=== PATIENT | male | born 1945 | race Caucasian/White ===

== ENCOUNTER 2025-03-17 07:54 | Outpatient (AMB) | payer MEDICARE, SELFPAY ==
--- NOTE | 2025-03-17 07:57 | A.OFFVIS_ITS ---
Vital Signs 03/17/25 08:10 Height 5 ft 5 in Weight 170 lb BMI 28.3 BP 134/70 Blood Pressure Location Rt brachial Position Sitting Intake Visit Reasons: ENP - Parkinson's Intake Note: patient referred by [facility] for parkinsons Allergies No Known Allergies Allergy (Verified 03/17/25 08:02) Medication List - Last Reconciled 03/17/25 by Frida Werner MD amlodipine-atorvastatin 5-20 mg 1 tab PO DAILY atorvastatin (Lipitor) 40 mg PO DAILY bupropion HCl 75 mg PO DAILY carbidopa-levodopa 25-100 mg (Sinemet) 1 tab PO TID memantine (Namenda) 10 mg PO BID metformin 1,000 mg PO BID pantoprazole 40 mg PO DAILY primidone 50 mg PO BEDTIME ropinirole 0.5 mg PO TID sertraline (Zoloft) 50 mg PO DAILY HPI Comments Details: 80y/o Right handed male comes for further management of Parkinsons and essential Tremors. His previous neurologist Dr. Pyle who retired. His noticed tremors in right hand about 5 years ago which progressively worsened. SHe also noticed that his movements were slower. So 3 years ago hew as seen by Dr. Pyle who diagnosed with Parkinsons disease with a component of essential tremors. He is on Primidone and carbidopa/levodopa . In the past 5 months his noticed more slowing ,needs help with many activities like standing up form sitting positions, dressing etc. His cognition is worse in the past 6 mths.He has trouble handling bills, trouble recalling , word finding etc.He stopped driving 3 mths ago - concerned about slow reaction time. SLeep- used to have sleep talking . he is very fatigued Mood- depression and anxiety Speech- softer, has drooling. He has some trouble swallowing Hand writing- smaller Using utensils- slower Dressing- slower Showers - needs help Falls- frequent -more when he is anxious. Gait- uses a cane , very slow, small steps , freezing episodes and turning is hard Bowel movements- OK Fluid intake - needs reminder Dizziness- none His brother and sister had parkinsons. He spent 1 year on [place] with possible exposure to agent orange. They live in a camp in [facility] in [place]. [facility] Medical History (Updated 03/17/25 @ 08:37 by Frida Werner MD) Parkinsons disease Parkinson disease with dyskinesia Mixed hyperlipidemia Essential tremor Cataract HTN (hypertension) Gout Diabetes Depression Asthma Arthritis Surgical History Hx of colonoscopy Hx of appendectomy Family History Mother Lung cancer Father Diabetes Social History Household Members: Spouse Alcohol intake: never Patient Tobacco Use Status: Never used Tobacco Physical Exam Vital Signs: Last Vital Signs BP 134/70 03/17/25 08:10 BMI result Body Mass Index 28.3 Const General: cooperative, healthy appearing, comfortable, no acute distress and anxious Nutritional Appearance: average body habitus Orientation/consciousness: patient oriented x3 Eyes Pupils: Equal, round and reactive pupils present Neuro Other: Right UE rest tremors - moderate amplitude Cog wheel rigidity - 2 + FFM and foot taps - Decreased cheli R>L Foot taps - decreased cheli R>L Moderate bradykinesia Severely decreased facial expression and blink Hypophonia Gait- small steps , stooped , freezing , difficulty turning General: patient oriented x3, moves all extremities and no focal motor deficits Cranial nerves: Yes Facial sensation intact/muscles of mastication intact, Yes Equal, round and reactive pupils present, Yes Bilaterally intact EOM present, Yes Nystagmus not present, Yes Normal facial strength present and Yes Midline to ngue present Cognition (Neuro): normal cognition Motor exam (neuro): 5/5 motor strength present throughout Deep tendon reflexes (DTR's): Right triceps reflex intensity grade: 1+, Left triceps reflex intensity grade: 1+, Rt Biceps (C5, C6): 1+, Left biceps reflex intensity grade: 1+, Right brachioradialis reflex intensity grade: 1+, Left brachioradialis reflex intensity grade: 1+, Right patellar reflex intensity grade: 1+ and Left patellar reflex intensity grade: 1+ Coordination: [id number] test normal Psych Affect: Anxious affect present Assessment & Plan Assessment & Plan (1) Parkinsons disease: Code(s): G20.A1 - Parkinson's disease without dyskinesia, without mention of fluctuations Category: Medical Qualifiers: Dyskinesia presence: without dyskinesia Fluctuating manifestations: without fluctuating manifestations Qualified Code(s): G20.A1 - Parkinson's disease without dyskinesia, without mention of fluctuations Plan Poorly controlled symptoms I will trial a higher dose of carbidopa.levodopa 25/100 tid - increase to 1tab qid Ropinirole 0.5mg tid Primidone 50mg qhs PT for parkinsons Orders: Orders PT Evaluation and Treatment Today G20.A1 - Parkinson's disease without dyskinesia, without mention of fluctuations Medications: New carbidopa-levodopa 25-100 mg (Sinemet) 1 tab PO QID 120 tabs 6RF Coding Level of Care Code New Pt Level 4 (26979) Complex EM visit Add On G2211 Diagnoses Parkinson's disease without dyskinesia or fluctuating manifestations G20.A1 Dyskinesia presence: without dyskinesia Fluctuating manifestations: without fluctuating manifestations
--- OUTSIDE RECORDS SUMMARY | 2025-03-17 07:59 | XMS_ITS | Clinical Summary ---
Author Organization [facility] Address [address] [place] [address] Care Team Providers Care Assistant Account Executive Name Role Phone Aniket Montez MD Primary Care Provider Unavail able Allergies No known active allergies Medications Medication Sig Dispensed Refills Start Date End Date Status amLODIPine-benazepril (LOTREL 5-20) 5-20 MG per capsule TAKE 1 CAPSULE BY MOUTH EVERY DAY FOR 90 DAYS 0 12/08/2023 Active atorvastatin (LIPITOR) tablet 40 mg TAKE 1 TABLET BY MOUTH EVERY DAY AT BEDTIME FOR 90 DAYS 0 01/20/2024 Active buPROPion (WELLBUTRIN) 75 MG tablet TAKE 1 TABLET BY MOUTH EVERY DAY FOR 90 DAYS 0 11/25/2023 Active carbidopa-levodopa (SINEMET) 25-100 MG per tablet Take 1 tablet by mouth 3 (three) times a day. 0 01/15/2024 Active cyclobenzaprine (FLEXERIL) 10 MG tablet Take 1 tablet (10 mg total) by mouth every evening. 0 12/25/2023 Active metFORMIN (GLUCOPHAGE) tablet 1000 mg Take 1 tablet (1,000 mg total) by mouth 2 (two) times a day with meals. 0 12/07/2023 Active pantoprazole (PROTONIX) 40 MG tablet Take 1 tablet (40 mg total) by mouth daily. 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 Family History Medical History Relation Name Comments Cancer Brother 3 brothers with cancer- 2 lung,1 esophageal Cancer Mother lung Relation Name Status Comments Brother Mother Social History Tobacco Use Types Packs/Day Years Used Date Smoking Tobacco: Former Cigarettes Q uit: 1975 Smokeless Tobacco: Never Comments:Smoked [id number] Alcohol Use Standard Drinks/Week Comments Not Currently 0 (1 standard drink = 0.6 oz pur e alcohol) Sex and Gender Information Value Date Recorded Sex Assigned at Male 12/20/2023 9:47 AM EDT Gender Identity Not on file Sexual Orientation Not on file Job Start Date Occupation Industry Not on file Not on file Not on file Last Filed Vital Signs Vital Sign Reading Time Taken Comments Blood Pressure 138/76 01/31/2024 2:39 PM EDT Pulse 80 01/31/2024 2:39 PM EDT Temperature 36.7 C (98.1 F) 01/31/2024 2:39 PM EDT Respiratory Rate - - Oxygen Saturation 99% 01/31/2024 2:39 PM EDT Inhaled Oxygen Concentration - - Weight 78.7 kg (173 lb 6.4 oz) 01/31/2024 2:39 P M EDT Height - - Body Mass Index - - Plan of Treatment Health Maintenance Due Date Last Done Comments Hepatitis C Screening 1945 COVID-19 Vaccine (#1) 02[birth year]12/1952 Pneumococcal Vaccine (1 of 2 - PCV) 1953 Depression Screening 1959 Preventative Health Evaluation 1965 DTap / Tdap / Td (1 - Tdap) 1966 Shingrix-Zoster Vaccine (1 of 2) 1966 Fall Risk Assessment 02/12/2012 RSV Adult > 60+ Yrs or Pregn ant (1 - 1-dose 75+ series) 2022 Influenza Vaccine (Season Ended) 2025 Hepatitis B Vaccines Aged Out No long er eligible based on patient's age to complete this topic RSV Ped < 20 months Aged Out No longe r eligible based on patient's age to complete this topic Care Teams Assistant Account Executive Relationship Specialty Start Date End Date Aniket Montez MD PCP - General Internal Medicine 12/20/23
[2025-03-17 08:10] VITALS: BP 134/70; BMI 28.3
== END 2025-03-17 08:45 | disposition home or self-care (01) ==
PROVIDERS: PCP Internal Medicine; Visit Provider Psychiatry & Neurology Neurology
DX: G20.A1 Parkinson's disease without dyskinesia, without mention of fluctuations (principal)
CPT/HCPCS: 99204; G2211

== ENCOUNTER → 2025-03-17 07:54 | Outpatient (BNVA) | payer MEDICARE, SELFPAY | PROVIDERS: PCP Internal Medicine; Visit Provider Psychiatry & Neurology Neurology | DX: G20.A1 Parkinson's disease without dyskinesia, without mention of fluctuations (principal) | CPT/HCPCS: 99202 ==

== ENCOUNTER 2025-05-20 11:06 | Outpatient (AMB) | payer MEDICARE, SELFPAY ==
[2025-05-20 11:35] VITALS: BP 124/74; PULSE 79; O2SAT 97; BMI 27.5
--- NOTE | 2025-05-20 11:35 | MHC.OFFVIS ---
Vital Signs 05/20/25 11:35 Height 5 ft 5 in Weight 165 lb 6 oz BMI 27.5 BP 124/74 Blood Pressure Location Rt brachial Position Sitting Pulse 79 Pulse Source Pulse Oximeter Pulse Oximetry (%) 97 Oxygen Delivery Method Room Air Intake Visit Reasons: R/S 05/13/2025 Intake Note: Patient presents follow up Parkinson's Medication. OT notes in chart. Patient fell yesterday(was leaning forward and could not stop and kept going forward. Hard time to position body to get up) last 4-5 days not doing well. Patient at times is stuck(freeze) and can not move. Patient also stated patient has voiced hopeless. OT been going well. Got Flu shot sayurday Accompanied by: Spouse Allergies No Known Allergies Allergy (Verified 05/20/25 11:47) HPI Comments Details: 80y/o r. handed male comes for further management of Parkinsons and Essential Tremors. His previous neurologist was Dr. Pyle who retired.Ashley his helps with history today. CD/LD 8am, 12pm, 4pm and 8pm. Interval Med Hx: He had a fall yesterday when bending over and helping to clean the sharron litter box. He could not figure out how to position himself to get back up. He was able to roll over on his stomach and get on his knees then pull himself up. He becomes completely exhausted with falls. His noticed tremors in r. hand at rest about 5 years ago, now progressively worsened. 3 years ago, she noticed his movements were slower, and he was seeen and diagnosed with Prkonsons disease with a component of essential tremors, r.hand >l. hand. He sees OT 2x a week, has good strength, however unable to initiate the movements. He has hemicrania managed with Indomethacin. Memory has worsened in the last 6months as he has trouble with word finding, recalling, he asks her what time are we leaving 3x or more, repeats, needs redirection, loses focus easily and needs cue-ing. He has trouble managing finances, was sending an exorbitant amount of money to bill payer but corrected this mistake. Ashley keeps extra finances in the account in case of these mistakes. Moves much slower, no longer drives, as his reaction time is very slow. He is on Primidone and carbidopa/levodopa 4 times a day. In the past 5 months his noticed more slowing ,needs help with many activities like standing up form sitting positions, dressing etc. SLeep- used to sleep talk, now fatigued regardless of sleeping 7-8hours a night. Mood- depression and anxiety we will increase his zoloft to 75mg today per pt. request. Speech is softer, has drooling. Denies dysphagia to solids or liquids. Hand writing- smaller, trouble cutting up food. Using utensils- slower. Dressing- is slow and needs support. Showers - with support. Falls- frequent -more when he is anxious. Gait- uses a cane, very slow, small steps , freezing episodes and turning to the left is challenging, going up and down stairs is difficulty. Does not want to use a walker. Bowel movements- every 2 days. Nocturia denies. Fluid intake - needs reminders. Dizziness/ vertigo denies. Daily headaches takes Indomethacin. FH + brother and sister had parkinsons. He spent 1 year on [employer] with possible exposure to agent orange. Sleep is generally good bedtime is at 11pm and wakes up at 9am, has one bathroom break. Denies snoring, gasping for air, choking or morning headaches. He has a motorized bed to help him transition in and out of bed. He is chronically fatigued. [facility] Medical History Parkinsons disease Parkinson disease with dyskinesia Mixed hyperlipidemia Essential tremor Cataract HTN (hypertension) Gout Diabetes Depression Asthma Arthritis Surgical History Hx of colonoscopy Hx of appendectomy Family History Mother Lung cancer Father Diabetes Social History Household Members: Spouse Alcohol intake: never Patient Tobacco Use Status: Never used Tobacco Physical Exam Vital Signs: Last Vital Signs Pulse 79 05/20/25 11:35 BP 124/74 05/20/25 11:35 Pulse Ox 97 05/20/25 11:35 Oxygen Delivery Method Room Air 05/20/25 11:35 BMI result Body Mass Index 27.5 Const General: cooperative, healthy appearing, comfortable, no acute distress and anxious Nutritional Appearance: average body habitus Orientation/consciousness: patient oriented x3 Eyes Pupils: Equal, round and reactive pupils present Neuro Other: Right UE rest tremors - moderate amplitude Cog wheel rigidity - 2 + FFM and foot taps - Decreased cheli R>L Foot taps - decreased cheli R>L Moderate bradykinesia Severely decreased facial expression and blink Hypophonia Gait- small steps , stooped , freezing , difficulty turning General: patient oriented x3, moves all extremities and no focal motor deficits Cranial nerves: Yes Facial sensation intact/muscles of mastication intact, Yes Equal, round and reactive pupils present, Yes Bilaterally intact EOM present, Yes Nystagmus not present, Yes Normal facial strength present and Yes Midline tongue present Cognition (Neuro): normal cognition Motor exam (neuro): Abnormal motor strength present and Abnormal muscle tone present Deep tendon reflexes (DTR's): Right triceps reflex intensity grade: 1+, Left triceps reflex intensity grade: 1+, Rt Biceps (C5, C6): 1+, Left biceps reflex intensity grade: 1+, Right brachioradialis reflex intensity grade: 1+, Left brachioradialis reflex intensity grade: 1+, Right patellar reflex intensity grade: 1+ and Left patellar reflex intensity grade: 1+ Coordination: [id number] test normal Psych Appearance: well kempt Affect: Anxious affect present Thought process: Normal thought process present Thought content: Normal thought content present Assessment & Plan Assessment & Plan (1) Parkinsons disease: Code(s): G20.A1 - Parkinson's disease without dyskinesia, without mention of fluctuations Category: Medical Qualifiers: Dyskinesia presence: without dyskinesia Fluctuating manifestations: without fluctuating manifestations Qualified Code(s): G20.A1 - Parkinson's disease without dyskinesia, without mention of fluctuations (2) Anxiety: Code(s): F41.9 - Anxiety disorder, unspecified Category: Medical (3) Depression: Code(s): F32.A - Depression, unspecified Category: Medical Qualifiers: Depression Type: other depression Qualified Code(s): F32.89 - Other specified depressive episodes (4) Drooling: Code(s): K11.7 - Disturbances of salivary secretion Category: Medical Plan Poorly controlled symptoms I will trial a higher dose of carbidopa.levodopa 25/100 tid - increase to 1tab qid, 8am, 12pm, 4pm, 8pm. Pt. education provided re: taking this medication without protiens due to decreased absorption. May take with crackers, snack or fruit. Ropinirole 0.5mg tid Primidone 50mg qhs Headches / hemicrania continue indomethacin per pcp, may use a migraine cap. Anxiety and Depression will increase the sertraline to 75mg po daily, as patient did not want to defer this to the PCP. PT / OT for parkinsons. Orders: Orders OT Evaluation and Treatment 05/20/25 K11.7 - Disturbances of salivary secretion Medications: Changed From memantine (Namenda) 10 mg PO BID To memantine (Namenda) take one tablet in the am and one tablet in the evening daily for cognitive decline. 10 mg PO BID 180 tabs 0RF forgetfulness 3 months MDD 20mg Patient Instructions: Sleep Hygiene provided: set a scheduled bedtime and wake time to help regulate the circadian rhythm and balance the release of pituitary hormones. Sleep in a dark room, temperatures below 68 degrees, and no devices n bed. Limit caffeinated products 6 hours prior to bed, and limit fluids 2-4 hours prior to bed. Gentle night yoga, diffusing essential oils, and playing soft music can be relaxing. Coding Level of Care Code Est Pt Level 4 (69214) Diagnoses Parkinson's disease without dyskinesia or fluctuating manifestations G20.A1 Dyskinesia presence: without dyskinesia Fluctuating manifestations: without fluctuating manifestations Anxiety F41.9 Other depression F32.89 Depression Type: other depression Drooling K11.7
--- OUTSIDE RECORDS SUMMARY | 2025-05-20 11:59 | XMS_ITS | Encounter Summary ---
Author Organization [facility] Address [address] [place] [address] Care Team Providers Care Feed Adviser Name Role Phone Community, Pcp Primary Care Provider Aniket Hernandez MD Primary Care Provider Linda mo Encounter Details Date Type Department Care Team Description 01/22/2018 Transfer Records Medical Records [address] [place] [id number] Abstract, Provider Social History Tobacco Use Types Packs/Day Years Used Date Smoking Tobacco: Never Assessed Sex Assigned at Date Recorded Not on file documented as of this encounter Plan of Treatment Not on file documented as of this encounter Visit Diagnoses Not on filedocumented in this encounter Care Teams Feed Adviser Relationship Specialty Start Date End Date [facility], Pcp PCP - General Internal Medicine 01/16/18 01/25/18 Aniket Montez MD PCP - General Internal Medicine 01/26/18 documented as of this encounter
--- OUTSIDE RECORDS SUMMARY | 2025-05-20 11:59 | XMS_ITS | Clinical Summary ---
Author Organization [facility] Address [address] [place] [address] Phone Care Team Providers Care Assistant Surveyor Name Role Phone Aniket Montez MD Primary Care Provider Allergies No known active allergies Medications amLODIPine-danyelle zepril (LOTREL) 5-20 mg per capsule TAKE 1 CAPSULE BY MOUTH EVERY DAY FOR 90 DAYS 12/08/2023 Active atorvastatin (LIPITOR) 40 mg tablet TAKE 1 TABLET BY MOUTH EVERY DAY AT BEDTIME FOR 90 DAYS 01/20/2024 Active buPROPion (WELLBUTRIN) 75 mg tablet TAKE 1 TABLET BY MOUTH EVERY DAY FOR 90 DAYS 11/25/2023 Active carbidopa-levod opa (SINEMET) 25-100 mg per tablet Take 1 tablet by mouth 3 (three) times a day. 01/15/2024 Active metFORMIN (GLUCOPHAGE) 1,000 mg tablet Take 1 tablet (1,000 mg total) by mouth 2 (two) times a day with meals. 12/07/2023 Active pantoprazole (PROTONIX) 40 mg EC tablet Take 1 tablet (40 mg total) by mouth daily. 10/26/2023 Active sertraline (ZOLOFT) 50 mg tablet TAKE 1 TABLET BY MOUTH EVERY DAY FOR 90 DAYS 10/29/2023 Active rOPINIRole (REQUIP) 0.5 mg tablet TAKE 1 TABLET (0.5 MG) BY ORAL ROUTE 3 TIMES PER DAY FOR 90 DAYS 12/07/2023 Active memantine (NAMENDA) 10 mg tablet Take 1 tablet (10 mg total) by mouth 2 (two) times a day. 10/23/2024 Active primidone (MYSOLINE) 50 mg tablet Take 2 tablets (100 mg total) by mouth. 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 Pulmonary nodules 02/02/2018 Hypertension 01/25/2018 Gout 01/25/2018 Depression 01/25/2018 Asthma 01/25/2018 Surgical History Surgery Date Site/Laterality Comments APPENDECTOMY PROCEDURE:APPENDECTOMY CATARACT EXTRACTION, BILATERAL PROCEDURE:CATARACT EXTRACTION, BILATERAL Medical History Medical History Date Comments Asthma DX:Asthma Diabetes mellitus ([facility] V24, [facility] V28) DX:Diabetes mellitus (HCC) Hypertension DX:Hypertension Parkinson's disease ([facility] V24, [facility] V28) DX:Parkinson's disease (HCC) Family History Medical History Relation Name Comments Cancer Brother 3 brothers with cancer- 2 lung,1 esophageal Cancer Mother lung Relation Name Status Comments Brother Mother Social History Tobacco Use Types Packs/Day Years Used Date Smoking Tobacco: Former Cigarettes Q uit: 09/25/1975 Smokeless Tobacco: Never Tobacco Cessation:Counseling Given: Not Answered Alcohol Use Standard Drinks/Week Comments Not Currently 0 (1 standard drink = 0.6 oz pur e alcohol) Sex and Gender Information Value Date Recorded Sex Assigned at Not on file Legal Sex Male 10:16 AM EST Gender Identity Not on file Sexual Orientation Not on file Obstetrics History Last Filed Vital Signs Vital Sign Reading Time Taken Comments Blood Pressure 144/68 01/30/2025 10:42 AM EDT Pulse 72 01/30/2025 10:42 AM EDT Temperature 36.5 C (97.7 F) 01/30/2025 10:42 AM EDT Respiratory Rate - - Oxygen Saturation 99% 01/30/2025 10:42 AM EDT Inhaled Oxygen Concentration - - Weight 78.9 kg (174 lb) 01/30/2025 10:42 AM EDT Height - - Body Mass Index - - Plan of Treatment Upcoming Encounters Date Type Department Care Team (Late st Contact Info) Description 01/30/2026 10:15 AM EDT Office Visit [facility] Hematology Oncology [address] [place] [address] Rolly-Samir Lee MD [address] [place] [address] Health Maintenance Due Date Last Done Comments Diabetes: Annual GFR (Glomerular Filtration Rate) 1947 Diabetes: Annual Foot Exam 1957 Diabetes: Annual Retina Eye Exam 1957 Zoster Vaccines (1 of 2) 1966 Cholesterol Screening (Lipid Panel) 08/23/2022 Falls Risk Assessment 08/23/2022 Hepatitis C Screening 08/23/2022 Medicare Annual Wellness Visit 08/23/2022 Social Influencers of Health Screening 08/23/2022 Diabetes: Annual Urine Albumin-Creatinine Ratio (uACR) 09/08/2022 Diabetes: Blood Sugar Control Test (HGBA1C) 09/08/2022 Hypertension/CHF/CAD Annual BMP Blood Test 09/08/2022 Depression Screening 09/25/2024 COVID-19 Vaccine (7 - Moderna risk season) 2024 05/17/2025, 06/10/2024, 07/08/2022, Additional history exists Influenza Vaccine (#1) 2025 , 06/10/2024, 06/24/2023, Additional history exists DTaP,Tdap,and Td Vaccines (2 - Td or Tdap) 06/10/2034 06/10/2024 RSV Immunization Adult Patients Completed 06/24/2023 Pneumococcal Vaccine: 50+ Years Completed 06/10/2024 HIB Vaccines Aged Out No longer eligi ble based on patient's age to complete this topic HPV Vaccines Aged Out No longer eligi ble based on patient's age to complete this topic Hepatitis A Vaccines Aged Out No long er eligible based on patient's age to complete this topic Hepatitis B Vaccines Aged Out No long er eligible based on patient's age to complete this topic IPV Vaccines Aged Out No longer eligi ble based on patient's age to complete this topic MMR Vaccines Aged Out No longer eligi ble based on patient's age to complete this topic Meningococcal ACWY Vaccine Aged Out N o longer eligible based on patient's age to complete this topic Meningococcal B Vaccine Aged Out No l onger eligible based on patient's age to complete this topic RSV Immunization Patients Under 20 months Aged Out No longer eligible based on patient's age to complete this topic Varicella Vaccines Aged Out No longer eligible based on patient's age to complete [place] [id number] [employer] Care Teams Assistant Surveyor Relationship Specialty Start Date End Date Aniket Montez MD [address] [place] [id number] PCP - General Internal Medicine 01/23/25
--- OUTSIDE RECORDS SUMMARY | 2025-05-20 11:59 | XMS_ITS | Clinical Summary ---
Author Organization [facility] Address [address] [place] [address] Care Team Providers Care Freelance Graphic Designer Name Role Phone Aniket Montez MD Primary [...] Q uit: 1973 Smokeless Tobacco: Never Comments:Smoked [id number] Alcohol Use Standard Drinks/Week Comments Not Currently [...] - 1-dose 75+ series) 2022 Influenza Vaccine (#1) 2025 Hepatitis B Vaccines Aged Out No long er eligible based on patient's age to complete this topic RSV Ped < 20 months Aged Out No longe r eligible based on patient's age to complete this topic Care Teams Freelance Graphic Designer Relationship Specialty Start Date End Date Aniket Montez MD PCP - General Internal Medicine 12/20/23
--- OUTSIDE RECORDS SUMMARY | 2025-05-20 11:59 | XMS_ITS | Clinical Summary ---
Author Organization [facility] Address [address] [place] [address] Care Team Providers Care Financial Management Analyst Name Role Phone Aniket Montez MD Primary Care Provider Linda mo Allergies Active Allergy Reactions Severity Noted Date Comments No Known Drug Allergies 02/07/2017 Medications Medication Sig Dispensed Refills Start Date End Date Status Pantoprazole Sodium 40 MG Powd Pack Take 1 Tab by mouth daily. 0 Active sertraline (ZOLOFT) 50 MG tablet Take 50 mg by mouth daily. 0 Active buPROPion (WELLBUTRIN) 75 MG tablet Take 75 mg by mouth 2 times daily. 0 Active Fexofenadine HCl (JES OR) Take 1 Tab by mouth daily. 0 Active sitagliptan (JANUVIA) 100 MG tablet Take 100 mg by mouth daily. 0 Active metformin (GLUCOPHAGE) 1000 MG tablet Take 1,000 mg by mouth 2 times daily (with meals). 0 Active atorvastatin (LIPITOR) 40 MG tablet Take 40 mg by mouth daily. 0 Active amlodipine-benazepril (LOTREL) 10-20 MG per capsule Take 1 capsule by mouth daily. 0 Active trazodone (DESYREL) 50 MG tablet Take 50 mg by mouth at bedtime. 0 Active Active Problems Problem Noted Date Pulmonary nodules 02/02/2018 Type 2 diabetes mellitus with cataract 0 01/25/2018 Hyperlipidemia 01/25/2018 Allergic rhinitis 01/25/2018 Asthma 01/25/2018 Depression 01/25/2018 Gout 01/25/2018 Hypertension 01/25/2018 Cataract 01/25/2018 Resolved Problems Problem Noted Date Resolved Date Pulmonary nodule 01/15/2018 02/24/2018 Family History Medical History Relation Name Comments Hypertension Brother 1 lung cancer, Throat Cancer Brother 2 Diabetes Father CA Lung Mother Hypertension Sister Relation Name Status Comments Brother 1 Brother 2 Father Mother Sister Social History Tobacco Use Types Packs/Day Years Used Date Smoking Tobacco: Former Cigarettes 1 0 06/05/1962 - 02/03/1976 Smokeless Tobacco: Never Tobacco Cessation:Counseling Given: No Alcohol Use Standard Drinks/Week Comments Yes 0 (1 standard drink = 0.6 oz pur e alcohol) Social Sex Assigned at Date Recorded Not on file Last Filed Vital Signs Vital Sign Reading Time Taken Comments Blood Pressure 110/68 02/02/2018 12:56 PM EDT Pulse 72 02/02/2018 12:56 PM EDT Temperature - - Respiratory Rate 14 02/02/2018 12:56 PM EDT Oxygen Saturation 98% 02/02/2018 12:56 PM EDT Inhaled Oxygen Concentration - - Weight 95.3 kg (210 lb 3.2 oz) 02/02/2018 12:56 PM EDT Height 165.1 cm (5' 5 ) 02/02/2018 12:56 PM EDT Body Mass Index 34.98 02/02/2018 12:56 PM EDT Plan of Treatment Health Maintenance Due Date Last Done Comments Covid-19 Vaccine (#1) 1945 HEPATITIS C SCREENING 1965 DTAP/TDAP/TD (1 - Tdap) 1966 CHOLESTEROL SCREENING 1967 SHINGLES VACCINE (1 of 2) 1997 PNEUMOCOCCAL VACCINE (1 - PCV) 02/12/2012 BMI CHECK/ADVISE 09/25/2024 02/02/2018 INFLUENZA (#1) 2025 Care Teams Financial Management Analyst Relationship Specialty Start Date End Date Aniket Montez MD PCP - General Internal Medicine 01/26/18
--- OUTSIDE RECORDS SUMMARY | 2025-05-20 11:59 | XMS_ITS | Encounter Summary ---
Author Organization [facility] Address [facility] [place] [address] Care Team Providers Care Ships Or Barges Loader Name Role Phone Aniket Montez MD Primary Care Provider Linda mo Encounter Details Date Type Department Care Team Description 02/05/2018 Release of Information Medical Records [address] [place] [id number] Abstract, Provider Social History Tobacco Use Types Packs/Day Years Used Date Smoking Tobacco: Former Cigarettes 1 0 06/05/1962 - 02/03/1976 Smokeless Tobacco: Never Alcohol Use Standard Drinks/Week Comments Yes 0 (1 standard drink = 0.6 oz pur e alcohol) Social Sex Assigned at Date Recorded Not on file documented as of this encounter Plan of Treatment Not on file documented as of this encounter Visit Diagnoses Not on filedocumented in this encounter Care Teams Ships Or Barges Loader Relationship Specialty Start Date End Date Aniket Montez MD PCP - General Internal Medicine 01/26/18 documented as of this encounter
== END 2025-05-20 13:02 | disposition home or self-care (01) ==
LOC: HO.HSMS 11:07
PROVIDERS: PCP Internal Medicine; Visit Provider Physician Assistant Medical
DX: G20.A1 Parkinson's disease without dyskinesia, without mention of fluctuations (principal); F41.9 Anxiety disorder, unspecified; F32.89 Other specified depressive episodes; K11.7 Disturbances of salivary secretion
CPT/HCPCS: 99214

== ENCOUNTER → 2025-05-20 11:06 | Outpatient (BNVA) | payer MEDICARE, SELFPAY | PROVIDERS: PCP Internal Medicine; Visit Provider Physician Assistant Medical | DX: G20.A1 Parkinson's disease without dyskinesia, without mention of fluctuations (principal); K11.7 Disturbances of salivary secretion; F41.9 Anxiety disorder, unspecified; F32.89 Other specified depressive episodes | CPT/HCPCS: 99212 ==

== ENCOUNTER 2025-07-23 08:31 | Outpatient (AMB) | payer MEDICARE, SELFPAY ==
[2025-07-23 08:34] VITALS: BP 116/74; PULSE 74; O2SAT 98; BMI 27.0
--- NOTE | 2025-07-23 08:34 | MHC.OFFVIS ---
Vital Signs 07/23/25 08:34 Height 5 ft 5 in Weight 162 lb 4 oz BMI 27.0 BP 116/74 Blood Pressure Location Rt brachial Position Sitting Pulse 74 Pulse Source Pulse Oximeter Pulse Oximetry (%) 98 Oxygen Delivery Method Room Air Intake Visit Reasons: 4mnth Parkinsons Intake Note: Follow up Parkinson's disease without dyskinesia, without mention of fluctuations, Anxiety and Depression, Drooling Sql Database Programmer Required: No Accompanied by: Spouse Allergies No Known Allergies Allergy (Verified 07/23/25 08:34) Medication List - Last Reconciled 07/23/25 by Frida Werner MD amlodipine-atorvastatin 5-20 mg 1 tab PO DAILY atorvastatin (Lipitor) 40 mg PO DAILY bupropion HCl 75 mg PO DAILY carbidopa-levodopa 25-100 mg (Sinemet) 1.5 tabs PO QID memantine (Namenda) 10 mg PO BID 3 months MDD 20mg metformin 1,000 mg PO BID pantoprazole 40 mg PO DAILY ropinirole 0.5 mg PO TID sertraline (Zoloft) 75 mg PO DAILY HPI Comments Details: 80y/o r. handed male comes for further management of Parkinsons and Essential Tremors. His previous neurologist was Dr. Pyle who retired.Ashley his helps with history today. CD/LD 8am, 12pm, 4pm and 8pm. OT has helped significantly He still falls occasionally when he is bending down . History form initial visit- His noticed tremors in right hand about 5 years ago which progressively worsened. SHe also noticed that his movements were slower. So 3 years ago hew as seen by Dr. Pyle who diagnosed with Parkinsons disease with a component of essential tremors. He is on Primidone and carbidopa/levodopa . In the past 5 months his noticed more slowing ,needs help with many activities like standing up form sitting positions, dressing etc. His cognition is worse in the past 6 mths.He has trouble handling bills, trouble recalling , word finding etc.He stopped driving 3 mths ago - concerned about slow reaction time. SLeep- used to have sleep talking . he is very fatigued Mood- depression and anxiety Speech- softer, has drooling. He has some trouble swallowing Hand writing- smaller Using utensils- slower Dressing- slower Showers - needs help Falls- frequent -more when he is anxious. Gait- uses a cane , very slow, small steps , freezing episodes and turning is hard Bowel movements- OK Fluid intake - needs reminder Dizziness- none His brother and sister had parkinsons. He spent 1 year on [place] with possible exposure to agent orange. They live in a camp in [facility] in [place]. COUNT [facility]CLUDES [facility] Medical History (Updated 07/23/25 @ 08:55 by Frida Werner MD) Parkinsons disease Parkinsons disease Parkinson disease with dyskinesia Mixed hyperlipidemia Essential tremor Cataract HTN (hypertension) Gout Diabetes Depression Asthma Arthritis Surgical History Hx of colonoscopy Hx of appendectomy Family History Mother Lung cancer Father Diabetes Social History Household Members: Spouse Alcohol intake: never Patient Tobacco Use Status: Never used Tobacco Physical Exam Vital Signs: Last Vital Signs Pulse 74 07/23/25 08:34 BP 116/74 07/23/25 08:34 Pulse Ox 98 07/23/25 08:34 Oxygen Delivery Method Room Air 07/23/25 08:34 BMI result Body Mass Index 27.0 Const General: cooperative, healthy appearing, comfortable, no acute distress and anxious Nutritional Appearance: average body habitus Orientation/consciousness: patient oriented x3 Eyes Pupils: Equal, round and reactive pupils present Neuro Other: Right UE rest tremors - moderate amplitude Cog wheel rigidity - 2 + FFM and foot taps - Decreased cheli R>L Foot taps - decreased cheli R>L Moderate bradykinesia Severely decreased facial expression and blink Hypophonia Gait- small steps , stooped , freezing , difficulty turning General: patient oriented x3, moves all extremities and no focal motor deficits Cranial nerves: Yes Facial sensation intact/muscles of mastication intact, Yes Equal, round and reactive pupils present, Yes Bilaterally intact EOM present, Yes Nystagmus not present, Yes Normal facial strength present and Yes Midline tongue present Cognition (Neuro): normal cognition Motor exam (neuro): Abnormal motor strength present and Abnormal muscle tone present Coordination: afhwow-mu-avst test normal Psych Appearance: well kempt Affect: Anxious affect present Thought process: Normal thought process present Thought content: Normal thought content present Assessment & Plan Assessment & Plan (1) Parkinsons disease: Comment: with falls . cognitive dysfunction Code(s): G20.A1 - Parkinson's disease without dyskinesia, without mention of fluctuations Category: Medical Plan I will trial a higher dose of carbidopa.levodopa 25/100 1 1/2 tabs qid Ropinirole 0.5mg tid D/C Primidone 50mg qhs PT for parkinsons Orders: Orders [facility] Program Eval and Treat Today G20.A1 - Parkinson's disease without dyskinesia, without mention of fluctuations Medications: Changed From carbidopa-levodopa 25-100 mg (Sinemet) 1 tab PO QID 120 tabs 6RF To carbidopa-levodopa 25-100 mg (Sinemet) 1.5 tabs PO QID 180 tabs 6RF Refilled memantine (Namenda) take one tablet in the am and one tablet in the evening daily for cognitive decline. 10 mg PO BID 180 tabs 6RF forgetfulness 3 months MDD 20mg Discontinued primidone 2 tabs at bedtime Discontinued Reason: Doctor's Order 50 mg PO BEDTIME 90 tabs 3RF rls MDD 100mg Coding Level of Care Code Est Pt Level 4 (83499) Complex EM visit Add On G2211 Diagnoses Parkinsons disease G20.A1
--- OUTSIDE RECORDS SUMMARY | 2025-07-23 09:06 | XMS_ITS | Clinical Summary ---
Author Organization [facility] Address [address] [place] [address] Care Team Providers Care Package Lift Operator Name Role Phone Aniket Montez MD Primary [...] Q uit: 1973 Smokeless Tobacco: Never Comments:Smoked [id number] Alcohol Use Standard Drinks/Week Comments Not Currently [...] age to complete this topic Care Teams Package Lift Operator Relationship Specialty Start Date End Date Aniket Montez MD PCP - General Internal Medicine 12/20/23
--- OUTSIDE RECORDS SUMMARY | 2025-07-23 09:06 | XMS_ITS | Encounter Summary ---
Author Organization [facility] Address [address] [place] [address] Care Team Providers Care Chemical Production Technician Name Role Phone Community, Pcp Primary Care Provider Aniket Hernandez MD Primary Care Provider Linda mo Reason for Visit * Reason Onset Date Comments Testing 01/15/2018 Encounter Details Date Type Department Care Team Description 01/15/2018 Telephone Pulmonology - [address] [place] [address] Reinaldo Brooks MD Testing Social History Tobacco Use Types Packs/Day Years Used Date Smoking Tobacco: Never Assessed Sex Assigned at Date Recorded Not on file documented as of this encounter Miscellaneous Notes * Telephone Encounter - Tianna Briggs - 01/16/2018 9:52 AM EDT Info added * Telephone Encounter - Ashlee Mercedes - 01/16/2018 9:31 AM EDT Need insurance information updated . * Telephone Encounter - Josephine Light M.A. - 01/16/2018 8:54 AM EDT Please sched before appt 02/02/18 * Telephone Encounter - Reinaldo Brooks MD - 01/15/2018 5:24 PM EDT Yes it was ordered through [employer]. I will put another order in * Telephone Encounter - Josephine Light M.A. - 01/15/2018 9:51 AM EDT Notes and CT on your desk.please put in order if needed. * Telephone Encounter - Wanda Taylor - 01/15/2018 9:35 AM EDT Pt is calling inquiring on status of a CT prior to his appt on 02/02/[address] Brooks. Pleaseadvise. States he usually does CT @ [facility]. documented in this encounter Plan of Treatment Not on file documented as of this encounter Visit Diagnoses Diagnosis Pulmonary nodule- Primary Solitary pulmonary nodule documented in this encounter Care Teams Chemical Production Technician Relationship Specialty Start Date End Date [facility], Pcp PCP - General Internal Medicine 01/16/18 01/25/18 Aniket Montez MD PCP - General Internal Medicine 01/26/18 documented as of this encounter
--- OUTSIDE RECORDS SUMMARY | 2025-07-23 09:06 | XMS_ITS | Encounter Summary ---
Author Organization [facility] Address [facility] [place] [address] Care Team Providers Care Bell Ringer Name Role Phone Aniket Montez MD Primary Care Provider Linda mo Encounter Details Date Type Department Care Team Description 02/05/2018 Release of Information Medical Records [address] [place] [id number] Abstract, Provider Social History Tobacco Use Types [...] on filedocumented in this encounter Care Teams Bell Ringer Relationship Specialty Start Date End Date Aniket Montez MD PCP - General Internal Medicine 01/26/18 documented as of this encounter
== END 2025-07-23 09:06 | disposition home or self-care (01) ==
LOC: HO.HSMS 08:32
PROVIDERS: PCP Internal Medicine; Visit Provider Psychiatry & Neurology Neurology
DX: G20.A1 Parkinson's disease without dyskinesia, without mention of fluctuations (principal)
CPT/HCPCS: 99214; G2211

== ENCOUNTER → 2025-07-23 08:31 | Outpatient (BNVA) | payer MEDICARE, SELFPAY | PROVIDERS: PCP Internal Medicine; Visit Provider Psychiatry & Neurology Neurology | DX: G20.A1 Parkinson's disease without dyskinesia, without mention of fluctuations (principal) | CPT/HCPCS: 99212 ==

== ENCOUNTER 2025-09-22 09:54 | Outpatient (AMB) | payer MEDICARE, SELFPAY ==
--- NOTE | 2025-09-22 09:55 | MHC.OFFVIS ---
Vital Signs 09/22/25 09:56 Height 5 ft 5 in Weight 160 lb 8 oz BMI 26.7 BP 110/72 Blood Pressure Location Rt brachial Position Sitting Pulse 81 Pulse Source Pulse Oximeter Pulse Oximetry (%) 98 Oxygen Delivery Method Room Air Intake Visit Reasons: 4 mo follow up Intake Note: Patient presents follow up Parkinson medication Adult Protective Caseworker Required: No Accompanied by: Spouse Allergies No Known Allergies Allergy (Verified 09/22/25 09:56) HPI Comments Details: 80y/o r. handed male comes for further management of Parkinsons and Essential Tremors. His previous neurologist was Dr. Pyle who retired.Ashley his helps with history today. They are traveling to [place] for and he will continue PT on line via zoom. He is on a regimen of CD/LD 8am, 12pm, 4pm and 8pm, and notices a significant improvement in gait and balance since he recently completed 12 weeks of OT with the [employer] Parkinson's program. He still falls occasionally when he is bending down. He notices his r. hand tremors are worse, however his l. hand tremors due to Ess. tremors. His cognition is worse in the past 6 mths and continues to take namenda 10mg po bid. He has trouble handling bills, recalling words finding things, etc. He stopped driving, due to slow reaction time. Sleep, used to talk and have conversations in his sleep, now is fatigued due to vivid dreams. Mood is depressed, low and has anxiety though managed with wellbutrin 75mg and zoloft 75mg qam. Speech is softer, and drooling is worse at night. He has some trouble swallowing is having a Barium swallow test in November 2024. Hand writing- smaller, drops food off the spoon and has difficulty with buttons. Using utensils, is slower and dressing is slower. Showers with supervision, and needs help. Falls- frequent -more when he is anxious. Gait- uses a cane , very slow, small steps , freezing episodes and turning is difficult. Bowel movements regular. Fluid intake - needs reminder. Dizziness- none FH + brother and sister had Parkinsons. He spent 1 year in [place] with possible exposure to agent orange. They live in a camp in [facility] [place]. History form initial visit- His noticed tremors in right hand about 5 years ago which progressively worsened. She also noticed that his movements were slower. So 3 years ago he was seen by Dr. Pyle who diagnosed him with Parkinsons disease and a component of essential tremors. He was started on Primidone and carbidopa/levodopa . In the past 5 months his noticed more slowing, needs help with many activities like standing up form sitting positions, dressing etc. PFSH Medical History Parkinsons disease Parkinsons disease Parkinson disease with dyskinesia Mixed hyperlipidemia Essential tremor Cataract HTN (hypertension) Gout Diabetes Depression Asthma Arthritis Surgical History Hx of colonoscopy Hx of appendectomy Family History Mother Lung cancer Father Diabetes Social History Household Members: Spouse Alcohol intake: never Patient Tobacco Use Status: Never used Tobacco Physical Exam Vital Signs: Last Vital Signs Pulse 81 09/22/25 09:56 BP 110/72 09/22/25 09:56 Pulse Ox 98 09/22/25 09:56 Oxygen Delivery Method Room Air 09/22/25 09:56 BMI result Body Mass Index 26.7 Const General: cooperative, healthy appearing, comfortable, no acute distress and anxious Nutritional Appearance: average body habitus Orientation/consciousness: patient oriented x3 Eyes Pupils: Equal, round and reactive pupils present Neuro Other: Severely decreased facial expression and blink Hypophonia with drooling worse at night. Right UE rest tremors - coarse moderate amplitude and L. UE tremor with action. Cog wheel rigidity - 2 + FFM and foot taps - Decreased cheli R>L Foot taps - decreased cheli R>L Moderate bradykinesia Gait- small steps , stooped , freezing , difficulty turning General: patient oriented x3, moves all extremities and no focal motor deficits Cranial nerves: Yes Facial sensation intact/muscles of mastication intact, Yes Equal, round and reactive pupils present, Yes Bilaterally intact EOM present, Yes Nystagmus not present, Yes Normal facial strength present and Yes Midline tongue present Cognition (Neuro): normal cognition Gait exam (Neuro): Normal gait present Motor exam (neuro): Abnormal motor strength present and Abnormal muscle tone present Coordination: syqrqy-wt-mctz test normal Psych Appearance: well kempt Speech and movement: Slowed movement present (Neuro) Affect: Anxious affect present Thought process: Normal thought process present Thought content: Normal thought content present Results Reviewed Results Reviewed: February 2025 Labs reviewed with pt. Assessment & Plan Assessment & Plan (1) Parkinsons disease: Comment: with falls . cognitive dysfunction Code(s): G20.A1 - Parkinson's disease without dyskinesia, without mention of fluctuations Category: Medical Qualifiers: Dyskinesia presence: without dyskinesia Fluctuating manifestations: without fluctuating manifestations Qualified Code(s): G20.A1 - Parkinson's disease without dyskinesia, without mention of fluctuations (2) Anxiety: Code(s): F41.9 - Anxiety disorder, unspecified Category: Medical (3) Depression: Code(s): F32.A - Depression, unspecified Category: Medical Qualifiers: Depression Type: other depression Qualified Code(s): F32.89 - Other specified depressive episodes Plan Continue carbidopa.levodopa 25/100 1 1/2 tabs qid Ropinirole 0.5mg tid D/C Primidone 50mg qhs Continue PT 3x a week and OT for tremors due to Parkinsons Drooling Barium swallow study in November 2024 is pending. 4 month f/u Patient Instructions: Sleep hygiene reviewed with pt. setting a regular scheduled time, ensuring no electronic devices are in the bedroom and temperatures are below 68 degrees creates a relaxing environment for restful sleep. Limit fluids 2 hours prior to bed and close blinds to omit light. For Parkinsons it is important to exercise daily if possible, smooth low intensity exercises such as biking can improve rigidity, and bradykinesia. Taking all medication on time and without proteins such as cheese burgers, steaks and elizabeth, this will help with gut absorption of CD/LD. You may eat meat and proteins one hour after taking medications. Join the Parkinsons Support Group at the [facility] for resources and support. Coding Level of Care Code Est Pt Level 4 (71226) Diagnoses Parkinson's disease without dyskinesia or fluctuating manifestations G20.A1 Dyskinesia presence: without dyskinesia Fluctuating manifestations: without fluctuating manifestations Anxiety F41.9 Other depression F32.89 Depression Type: other depression
[2025-09-22 09:56] VITALS: BP 110/72; PULSE 81; O2SAT 98; BMI 26.7
--- OUTSIDE RECORDS SUMMARY | 2025-09-22 10:42 | XMS_ITS | Clinical Summary ---
Author Organization [facility] Prior to 02/22/[address] [place] [address] Care Team Providers Care Food General Manager Name Role Phone Aniket Montez MD Primary [...] Q uit: 1973 Smokeless Tobacco: Never Comments:Smoked [id number] Alcohol Use Standard Drinks/Week Comments Not Currently [...] age to complete this topic Care Teams Food General Manager Relationship Specialty Start Date End Date Aniket Montez MD PCP - General Internal Medicine 12/20/23
--- OUTSIDE RECORDS SUMMARY | 2025-09-22 10:42 | XMS_ITS | Clinical Summary ---
Author Organization [facility] Address [address] [place] [address] Phone Care Team Providers Care Inspector Tool Name Role Phone Aniket Montez MD Primary Care Provider [phone] Allergies No known active allergies Medications amLODIPine-danyelle [...] History Date Comments Asthma DX:Asthma Diabetes mellitus ([facility] V24, [facility] V28) DX:Diabetes mellitus (HCC) Hypertension DX:Hypertension Parkinson's disease ([facility] V24, [facility] V28) DX:Parkinson's disease (HCC) Family History Medical History Relation Name Comments Cancer Brother 3 brothers with cancer- 2 lung,1 esophageal Cancer Mother lung Relation Name Status Comments Brother Mother Social History Tobacco Use Types Packs/Day Years Used Date Smoking Tobacco: Former Cigarettes 0 Q uit: 09/25/1975 Smokeless Tobacco: Never Tobacco Cessation:Counseling Given: Not Answered Alcohol Use Standard Drinks/Week Comments Not Currently 0 (1 standard drink = 0.6 oz pur e alcohol) Sex and Gender Information Value Date Recorded Sex Assigned at Not on file Legal Sex Male 10:16 AM EST Gender Identity Not on file Sexual Orientation Not on file Last Filed Vital Signs [...] Description 01/30/2026 10:15 AM EDT Office Visit [facility] Hematology Oncology [address] [place] [address] Rolly-Samir Lee MD [address] [place] [address] Health Maintenance Due Date Last [...] Test 09/08/2022 Depression Screening 09/25/2024 COVID-19 Vaccine ( season) 2025 05/17/2025, 06/10/2024, 07/08/2022, Additional history exists DTaP,Tdap,and Td Vaccines (2 - Td or Tdap) 06/10/2034 06/10/2024 RSV Immunization Adult Patients Completed 06/24/2023 Pneumococcal Vaccine: 50+ Years Completed 06/10/2024 Influenza Vaccine Completed 05/17/2025, , 06/24/2023, Additional history exists Colorectal Cancer Screening: Colonoscopy Discontinued 09/17/2025, 09/17/2025, 09/17/2025, Additional history exists HIB Vaccines Aged Out No longer eligi [...] on patient's age to complete this topic Procedures Procedure Name Priority Date/Time Associated Diagnosis Comments COLONOSCOPY Routine 09/17/2025 3:00 PM EST COLONOSCOPY Routine 09/17/2025 2:59 PM EST COLONOSCOPY Routine 09/17/2025 2:58 PM EST COLONOSCOPY Routine 09/17/2025 2:57 PM EST EGD Routine 09/17/2025 2:54 PM EST COLONOSCOPY Routine 09/17/2025 2:53 PM EST COLONOSCOPY Routine 09/17/2025 2:52 PM EST ..LAB TO CALL RESULTS Routine 09/17/2025 2:49 PM EST MR ABDOMEN WO CONTRAST Routine 09/17/2025 2:[address] ABDOMEN W CONTRAST Routine 09/17/2025 2:47 PM EST from Last 3 Months Results * COLONOSCOPY (09/17/2025 3:00 PM EST) Only the most recent of6 resultswithin the time period is included. Anatomical Region Laterality Modality Endoscopy Historical Provider GI~PROCEDURE ORDERABLES F inal Result * EGD (09/17/2025 2:54 PM EST) Anatomical Region Laterality Modality Endoscopy [facility] Provider GI~PROCEDURE ORDERABLES F inal Result * Lab use only - Non-affiliated results notification (09/17/2025 2:49 PM EST) Other Topography unknown / Unknown Historical Provider LAB BLOOD ORDERABLES Valerie l Result * MR Abdomen wo Contrast (09/17/2025 2:49 PM EST) Anatomical Region Laterality Modality Body Magnetic Resonan ce Historical Provider IMG MRI PROCEDURES Final Result * CT Abdomen w Contrast (09/17/2025 2:47 PM EST) Anatomical Region Laterality Modality Body Computed Tomogra phy Historical Provider MD WANG CT PROCEDURES Final R esult from Last [address] [id number] [employer] Care Teams Inspector Tool Relationship Specialty Start Date End Date Aniket Montez MD [address] [place] [id number] PCP - General Internal Medicine 01/23/25
== END 2025-09-22 11:05 | disposition home or self-care (01) ==
LOC: HO.HSMS 09:55
PROVIDERS: PCP Internal Medicine; Visit Provider Physician Assistant Medical
DX: G20.A1 Parkinson's disease without dyskinesia, without mention of fluctuations (principal); F41.9 Anxiety disorder, unspecified; F32.89 Other specified depressive episodes
CPT/HCPCS: 99214

== ENCOUNTER → 2025-09-22 09:54 | Outpatient (BNVA) | payer MEDICARE, SELFPAY | PROVIDERS: PCP Internal Medicine; Visit Provider Physician Assistant Medical | DX: G20.A1 Parkinson's disease without dyskinesia, without mention of fluctuations (principal); F41.9 Anxiety disorder, unspecified; F32.89 Other specified depressive episodes; Z79.899 Other long term (current) drug therapy | CPT/HCPCS: 99212 ==